=== PATIENT | male | born 1930 | race Caucasian/White ===

== ENCOUNTER → 2017-04-23 | Day surgery (SDC) | payer MEDICARE, BC ==
[~2017-04-23] MED LIST: AMIODARONE HCL200 MG PO; APRESOLINE PO; ASPIRIN PO; ASPIRIN81 M2 PO; ATORVASTATIN CA10 MG PO; ATROVENT NEB; B COMPLEX1 CA1 PO; BREO ELLIPTA 11 EACH INH; CALCIUM 600 +1 EAC5 PO; COMBIVENT INH14.7 GM INH; CORDARONE200 M1 PO; COUMADIN PO; CRESTOR10 MG PO; DOXYCYCLINE HY100 M3 PO; FLOMAX0.4 M1 PO; FUROSEMIDE40 MG PO; GABAPENTIN300 MG PO; HCTZ PO; HYDROCHLOROTHIA25 MG PO; KEFLEX500 MG PO; KROGER PHARMACY; L-METHYL-B6-B11 EACH PO; LEVOFLOXACIN500 MG PO; LEVOTHROID112 MCG PO; LIPITOR PO; LIPITOR20 MG PO; LYRICA PO; MELADOX3 MG PO; MIRALAX17 G2 PO; MULTI-VIT/MIN P1 TAB PO; MULTI-VITAMIN1 EAC1 PO; MULTIPLE VITAMI1 T11 PO; NEURONTIN300 MG PO; NORCO 7.5-3251 EACH PO; NORVASC PO; NORVASC10 MG PO; OS-CAL 500 + D500 MG PO; OYSTER CALCIUM500 MG PO; PREDNISONE; SYNTHROID PO; SYNTHROID125 PO; TOPROL XL PO; VITAMIN B12-FO1 EACH PO; VITAMIN D-32000 UNI2 PO; VITAMIN D33000 UNIT PO; WARFARIN SODIUM4 MG PO
--- NOTE | ~2017-04-23 | OR ---
Unit #: [id number] #: [id number] Patient: ROCIO BACA [id number] [address] [place], [place] [address] [id number] O MR#: [id number] NAME: ROCIO BACA. ROOM: Date of Procedure: 04/23/2017 Admission Date: 04/23/2017 Surgeon: Pedro Pedraza M.D. : 1930 Attending Physician: Pedro Pedraza M.D. Primary Care Physician: Collin Vila M.D. SURG[facility] CENTER OPERATIVE NOTE PROCEDURE PERFORMED Lumbar epidural steroid injection under x-ray guided needle placement with no provider administered conscious sedation. PREOPERATIVE DIAGNOSES 1. Acute lumbar radiculitis. 2. Spinal stenosis, lumbosacral spine. 3. Degenerative joint disease, lumbosacral spine. 4. Degenerative disk disease, lumbosacral spine. INDICATIONS FOR PROCEDURE The patient presents today with a month's long history of crescendo pattern lumbar epidural pain, which has failed to respond to conservative measures which include management and self-directed physical activity. The patient's pain is advanced a point that is negatively impacting his activities of daily living. After discussing risks and benefits of proceeding today with a lumbar approach epidural steroid injection and return on 05/14/2017, the patient agreed this would be the appropriate course of action. DESCRIPTION OF PROCEDURE He was then taken to the operating room, where he was prepped and draped in a sterile manner. Standard monitors were applied. He refused all forms of sedation and lumbar epidural space accessed at the L5-S1 level using loss of resistance technique and x-ray guidance. Needle placement was confirmed with injection of 2 mL of Omnipaque. There was good superior and inferior flow, although the superior flow was better at this L5-S1 placement. Following successful needle placement confirmation which required an x-ray time of 4 seconds, the patient received an injectate containing 4 mL normal saline and 80 mg of methylprednisolone. He tolerated this procedure well. He was discharged home with followup instructions, which include return dates as described above. Dictated by... Hailey Alexis/ed TD: 04/23/2017 13:29 JOB #: [id number] CC: Walter Jha M.D. Unit #: [id number] #: [id number] Patient: [facility] OPERATIVE NOTE Page 1 of 1 X Baldomero Pedraza MD PROCEDURE OPERATIVE NOTE
== END | disposition home or self-care (01) ==
LOC: CCSC 04-18 11:30
DX: M51.17 Intervertebral disc disorders with radiculopathy, lumbosacral region (principal); M47.27 Other spondylosis with radiculopathy, lumbosacral region; M48.07 Spinal stenosis, lumbosacral region; I25.10 Atherosclerotic heart disease of native coronary artery without angina pectoris; J44.9 Chronic obstructive pulmonary disease, unspecified; E03.9 Hypothyroidism, unspecified; Z85.51 Personal history of malignant neoplasm of bladder; Z87.01 Personal history of pneumonia (recurrent); Z99.2 Dependence on renal dialysis; Z91.040 Latex allergy status; Z79.82 Long term (current) use of aspirin; Z79.51 Long term (current) use of inhaled steroids; Z79.899 Other long term (current) drug therapy; Z95.1 Presence of aortocoronary bypass graft; Z90.49 Acquired absence of other specified parts of digestive tract; Z98.890 Other specified postprocedural states
CPT/HCPCS: J1040; J2250

== ENCOUNTER → 2017-05-01 | Outpatient (CLI) | payer MEDICARE, BC ==
--- NOTE | ~2017-05-01 | CT98 ---
[facility] A Service of [facility] / [facility] RADIOLOGY TEXT RESULTS PATIENT: ROCIO BACA [facility] : [birth year] UNIT #: [id number] AGE: [address]: Baldomero Pedraza MD SEX: M ORDER DR: [id number] [facility] [address] [facility]. [place], [place] [address] [id number] O MR#: [id number] Acc #: [id number] NAME: ROCIO BACA. : 1930 SEX: M STUDY DATE/TIME: 05/01/2017 11:13 UNIT: [facility] ROOM: STUDY DESCRIPTION: CT Lumbar Spine Wo Cont Attending Physician: Pedro Pedraza M.D. Referring Physician: Pedro Pedraza M.D. Ordering Physician: Pedro Pedraza M.D. Primary Care Physician: Collin Vila M.D. MEDICAL IMAGING REPORT This report is preliminary unless electronic signature is present EXAM Lumbar spine CT without contrast 05/01/2017 COMPARISON 03/30/2008. PROCEDURE Axial unenhanced lumbar CT with multiplanar reformats. This CT examination was performed with one or more of the following radiation dose reduction techniques: automatic exposure control, adjustment of mA and/or kV according to patient size, and iterative reconstruction. CLINICAL HISTORY Two-year history of low back pain radiating to legs. FINDINGS There has been extensive previous fusion. There are bilateral pedicle screws from T11 through the first sacral segment. There is no convincing evidence of device loosening or failure at any level. There is no fracture, bone erosion or destruction. There is a mild levoscoliosis, and there is slight 4-5 anterolisthesis. There has been multilevel laminectomy, all unchanged since the prior study. 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 From T11-L1, there appears to be solid bony union across the posterior elements. The paraspinous tissues are unremarkable. There is sacroiliac degenerative change. IMPRESSION Extensive fusion from T11 through the upper sacrum without evidence of device loosening or failure, fracture, bone erosion or destruction or STS. [facility] A Service of [facility] / [facility] RADIOLOGY TEXT RESULTS PATIENT: ROCIO BACA LOCATION: [facility] : 34 UNIT #: [id number] AGE: [address]: Baldomero Pedraza MD SEX: M ORDER DR: other acute abnormality. Overall no substantial interval change is seen since the examination of 03/30/2008, though there is generally fairly extensive bony union, also noted above. Dictated by... Jony Barakat M.D. THIS IS AN ELECTRONICALLY VERIFIED REPORT Jony Barakat M.D. at 05/04/2017 7:30 AM RIKI/villa TD: 05/02/2017 09:44 JOB #: [id number] MEDICAL IMAGING REPORT Page 1 of 1 COPY
== END | disposition home or self-care (01) ==
LOC: CCAT 10:10
DX: M54.16 Radiculopathy, lumbar region (principal); Z98.1 Arthrodesis status
CPT/HCPCS: 72131